=== PATIENT | female | born 1990 | race Caucasian/White ===

== ENCOUNTER 2021-11-10 11:22 | Emergency (ER) | payer OTHER ==
[2021-11-10 11:55] LABS: BASOPHIL 0.4 % (0-2); EOSINOPHIL 0.3 % (0-5); HCT 41.5 % (37.0-47.0); LYMPHOCYTE 17.6 % (15-48); MCH 31.5 pg (25.0-31.0); MCHC 33.7 g/dL (32.0-36.0); MCV 93.3 fL (78.0-100.0); MONOCYTE 8.7 % (0-12); NEUTROPHIL 72.7 % (41-80); NRBC 0; PLT 234 K/uL (150-400); RBC 4.45 M/uL (4.20-5.40); RDW 12.8 % (11.5-14.0); WBC 10.1 K/uL (4.0-10.5)
[2021-11-10 12:08] LABS: BILIRUBIN 1+ mg/dL (NEGATIVE); BLOOD TRACE-INTACT Ery/uL (NEGATIVE); CLARITY CLEAR (CLEAR); COLOR YELLOW (YELLOW); GLUCOSE (U) NORMAL (NORMAL); LEUKOCYTES NEGATIVE Leu/uL (NEGATIVE); NITRITE NEGATIVE (NEGATIVE); PROTEIN NEGATIVE (NEGATIVE); SPECIFIC GRAVITY 1.015 (1.001-1.030); UROBILINOGEN 0.2 mg/dL (0.2-1.0)
[2021-11-10 12:13] LABS: ALBUMIN 3.5 g/dL (3.4-5.0); BILIRUBIN - TOTAL 0.3 mg/dL (0.2-1.0); BUN/CREAT RATIO (CALC) 4.3 RATIO; CREATININE 0.7 mg/dL (0.51-0.95); GLOBULIN (CALCULATION) 4.5 g/dL; POTASSIUM 3.3 mmol/L (3.5-5.1)
[2021-11-10 12:17] LABS: BACTERIA 2+; SQUAMOUS EPITHELIAL CELLS 20-50
[2021-11-10] MEDS ORDERED: BENTYL10 MG PO (14:06)
[2021-11-10] MEDS ORDERED: BACTRIM DS TAB1 EACH PO (14:06)
[2021-11-10] MEDS ORDERED: ONDANSETRON HCL4 MG PO (14:06)
== END 2021-11-10 14:20 | disposition home or self-care (01) ==
LOC: FER 11:22
PROVIDERS: Internal Medicine
DX: R10.84 Generalized abdominal pain (principal); N39.0 Urinary tract infection, site not specified; R11.10 Vomiting, unspecified; R19.7 Diarrhea, unspecified; F17.290 Nicotine dependence, other tobacco product, uncomplicated; Z91.041 Radiographic dye allergy status
CPT/HCPCS: 36415; 80053; 81001; 82150; 83690; 85025; 87088; J1170; J1885; J2405